=== PATIENT | male | born 1980 | race African-American/Black ===

== ENCOUNTER 2022-05-11 11:52 | Observation (INO) ==
[2022-05-11 12:34] LABS: Hematocrit (blood only) 41.7 % (40.1-51.0); Hemoglobin 14.3 g/dl (14.0-18.0); Mean Corpuscular Hemoglobin 29.7 pg (25.0-34.0); Mean Corpuscular Hgb Conc 34.3 g/dL (32.0-36.0); Mean Corpuscular Volume 86.5 fL (80.0-100.0); Mean Platelet Volume 9.1 fL (9.4-12.4); Platelet Count 289 K/uL (130-400); RDW Coefficient of Variation 13.2 % (11.5-14.5); RDW Standard Deviation 41.1 fL (36.4-46.3); Red Blood Count 4.82 M/uL (4.63-6.08); White Blood Count 19.08 K/ul (4.8-10.8)
[2022-05-11 12:54] LABS: Basophils # (auto) 0.03 K/uL (0-0.2); Basophils % (auto) 0.2 %; Immature Granulocytes # (auto) 0.09 K/uL (0.00-0.02); Immature Granulocytes % (auto) 0.5 %; Lymphocytes # (auto) 0.76 K/uL (1.2-3.4); Monocytes # (auto) 0.83 K/uL (0.24-0.82); Monocytes % (auto) 4.4 %; Neutrophils # (auto) 17.37 K/uL (1.4-6.5); Neutrophils % (auto) 90.9 %
[2022-05-11 12:59] LABS: Albumin Globulin Ratio 1.3 (0.9-2); BUN Creatinine Ratio 16.7 (10-20); Bilirubin,Total 0.5 mg/dl (0.2-1.0); Calcium 9.2 mg/dl (8.5-10.1); Creatinine Clr Calc Pharmacy 122.9 ml/min; Est GFR (African American) 114.1 ml/min; Est GFR (Non-African American) 98.5 ml/min; Globulin 3.1 gm/dl (2.5-4.0); Potassium 3.9 mmol/L (3.5-5.1); Total Protein 7.1 gm/dl (6.0-8.3)
[2022-05-11] MEDS ORDERED: ONDANSETRON INJ 2 MG/ML 2 ML VIAL IV STA (13:40)
[2022-05-11] MEDS ORDERED: MoRPHine SULFATE 10 MG/ML CARP/VIAL IV STA (13:40)
[2022-05-11] MEDS ORDERED: MoRPHine SULFATE 4 MG/ML 1 ML CARP\\VIAL IV PRN ×2 (13:40→19:35)
[2022-05-11] MEDS ORDERED: SODIUM CHLORIDE 0.9% 1000ML 1,000 ML IV SCH (13:43)
--- NOTE | 2022-05-11 13:51 | Emergency Department Note ---
History of Present Illness General Chief complaint: Abdominal Pain Stated complaint: ABDOMINAL PAIN WITH EMESIS Time Seen by Provider: 05/11/22 13:29 History of Present Illness Maximum Pain Intensity: 6 Patient is a 41-year-old male, inmate at [facility], with past medical history significant for hypertension, diabetes with neuropathy, depression/personality disorder, who is brought to the emergency department by corrections officers for evaluation of abdominal pain, nausea, vomiting and diarrhea. He reports a diffuse, generalized abdominal pain for the last 5 days with associated nausea and anorexia. He developed diarrhea yesterday, and has been vomiting all night. The pain is now more localized in the right side. He rates it a 6/10. He had some milk, orange juice and a few bites of cereal for breakfast this morning. He reports burning with urination. He was seen by medical staff at the [facility] and sent to the ED for evaluation. Home Medications Medication Instructions Recorded Confirmed Type aspirin 81 mg chewable tablet 81 mg PO DAILY 12/27/21 12/27/21 History atenolol 25 mg tablet 50 mg PO DAILY 12/27/21 12/27/21 History enalapril maleate 20 mg tablet 20 mg PO BID 12/27/21 12/27/21 History ergocalciferol (vitamin D2) 1,250 1,250 mcg PO WK 12/27/21 12/27/21 History mcg (50,000 unit) capsule (Vitamin D2) lamotrigine 150 mg tablet 150 mg PO BID 12/27/21 12/27/21 History metformin 500 mg tablet 500 mg PO DAILY 12/27/21 12/27/21 History nortriptyline 25 mg capsule 25 mg PO HS 12/27/21 12/27/21 History sertraline 100 mg tablet 200 mg PO DAILY 12/27/21 12/27/21 History Allergies Allergy/AdvReac Type Severity Reaction Status Date / Time No Known Allergies Allergy Verified 12/27/21 22:26 Past Med/Surg History Medical History (Updated 05/11/22 @ 19:49 by Dar Philippe) Appendicitis, acute Depression Diabetes High blood pressure Surgical History H/O hernia repair Social History (Updated 05/11/22 @ 13:49 by Dar Philippe) Smoking Status: Current every day smoker Preferred Language: Italian Current Living Situation: Other Current Living Situation Comment: [facility] current occupational status: other 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 Feels Safe at Home: Yes Review of Systems A total of 10 systems reviewed and were otherwise negative Physical Exam Vital Signs Vital Signs - 24 hr 05/11/22 11:57 05/11/22 12:51 05/11/22 12:52 Temperature 36.6 C Temperature Source Temporal Artery Scan Pulse Rate 86 Pulse Rate [Finger] 87 Pulse Rate from SpO2 Sensor Pulse Rhythm [Finger] Regular Pulse Strength [Finger] Normal Respiratory Rate 18 20 Respiratory Effort / Characteristics Non-Labored Non-Labored Respiratory Depth Normal Normal Blood Pressure 161/116 H 199/125 H Blood Pressure [Left Arm] 199/125 H Blood Pressure Mean 131 149 Blood Pressure Mean [Left Arm] 149 Blood Pressure Position [Left Arm] Lying Pulse Oximetry 98 94 Oxygen Delivery Method Room Air Room Air Sepsis Recent Fever Within 48 Hours No Sepsis New/Unexplained Change in Mental Status No Sepsis Action Taken by Nursing No Action Required 05/11/22 12:52 05/11/22 13:00 05/11/22 13:00 Temperature Temperature Source Pulse Rate 87 80 Pulse Rate [Finger] Pulse Rate from SpO2 Sensor 87 Pulse Rhythm [Finger] Pulse Strength [Finger] Respiratory Rate 27 H 27 H Respiratory Effort / Characteristics Respiratory Depth Blood Pressure 181/117 H Blood Pressure [Left Arm] Blood Pressure Mean 138 Blood Pressure Mean [Left Arm] Blood Pressure Position [Left Arm] Pulse Oximetry 94 Oxygen Delivery Method Sepsis Recent Fever Within 48 Hours Sepsis New/Unexplained Change in Mental Status Sepsis Action Taken by Nursing 05/11/22 13:30 05/11/22 13:30 05/11/22 14:00 Temperature Temperature Source Pulse Rate 86 92 H Pulse Rate [Finger] Pulse Rate from SpO2 Sensor Pulse Rhythm [Finger] Pulse Strength [Finger] Respiratory Rate 31 H 22 Respiratory Effort / Characteristics Respiratory Depth Blood Pressure 205/136 H Blood Pressure [Left Arm] Blood Pressure Mean 159 Blood Pressure Mean [Left Arm] Blood Pressure Position [Left Arm] Pulse Oximetry Oxygen Delivery Method Sepsis Recent Fever Within 48 Hours Sepsis New/Unexplained Change in Mental Status Sepsis Action Taken by Nursing 05/11/22 14:01 05/11/22 14:01 05/11/22 14:30 Temperature Temperature Source Pulse Rate 92 H Pulse Rate [Finger] Pulse Rate from SpO2 Sensor Pulse Rhythm [Finger] Pulse Strength [Finger] Respiratory Rate 25 H Respiratory Effort / Characteristics Respiratory Depth Blood Pressure 195/132 H 170/114 H Blood Pressure [Left Arm] Blood Pressure Mean 153 132 Blood Pressure Mean [Left Arm] Blood Pressure Position [Left Arm] Pulse Oximetry Oxygen Delivery Method Sepsis Recent Fever Within 48 Hours Sepsis New/Unexplained Change in Mental Status Sepsis Action Taken by Nursing 05/11/22 14:30 05/11/22 14:31 05/11/22 16:17 Temperature Temperature Source Pulse Rate 91 H 95 H Pulse Rate [Finger] Pulse Rate from SpO2 Sensor 92 H 95 H Pulse Rhythm [Finger] Pulse Strength [Finger] Respiratory Rate 24 33 H Respiratory Effort / Characteristics Respiratory Depth Blood Pressure 133/81 Blood Pressure [Left Arm] Blood Pressure Mean 98 Blood Pressure Mean [Left Arm] Blood Pressure Position [Left Arm] Pulse Oximetry 93 94 Oxygen Delivery Method Sepsis Recent Fever Within 48 Hours Sepsis New/Unexplained Change in Mental Status Sepsis Action Taken by Nursing 05/11/22 16:19 05/11/22 16:19 05/11/22 16:30 Temperature Temperature Source Pulse Rate 87 Pulse Rate [Finger] Pulse Rate from SpO2 Sensor 86 Pulse Rhythm [Finger] Pulse Strength [Finger] Respiratory Rate 22 Respiratory Effort / Characteristics Respiratory Depth Blood Pressure 153/94 H 147/92 H Blood Pressure [Left Arm] Blood Pressure Mean 113 110 Blood Pressure Mean [Left Arm] Blood Pressure Position [Left Arm] Pulse Oximetry 96 Oxygen Delivery Method Sepsis Recent Fever Within 48 Hours Sepsis New/Unexplained Change in Mental Status Sepsis Action Taken by Nursing 05/11/22 16:30 Temperature Temperature Source Pulse Rate 81 Pulse Rate [Finger] Pulse Rate from SpO2 Sensor Pulse Rhythm [Finger] Pulse Strength [Finger] Respiratory Rate 28 H Respiratory Effort / Characteristics Respiratory Depth Blood Pressure Blood Pressure [Left Arm] Blood Pressure Mean Blood Pressure Mean [Left Arm] Blood Pressure Position [Left Arm] Pulse Oximetry Oxygen Delivery Method Sepsis Recent Fever Within 48 Hours Sepsis New/Unexplained Change in Mental Status Sepsis Action Taken by Nursing CONSTITUTIONAL: Patient is a well-appearing 41-year-old male who is awake and alert and laying on the gurney. Corrections officers are in the room. EYES: Pupils equal, round, reactive to light and accommodation. EOMs intact without nystagmus. Sclera are anicteric. ENT: Tympanic membranes intact, with normal landmarks. External canals are clear. Oral and nasopharynx are clear. Mucous membranes are moist, no lesions, tongue and gums appear normal. CARDIOVASCULAR: Regular rate and rhythm. Peripheral pulses easy to palpable. RESPIRATORY: Breath sounds equal and clear to auscultation. GI: Bowel sounds are present. Abdomen is soft, mildly distended, diffusely tender to percussion, primarily throughout the lower abdomen. He is tender to palpation in the right lower quadrant with voluntary guarding. No rigidity. MUSCULOSKELETAL: Full range of motion of extremities x 4 with good strength. No cyanosis, edema, joint tenderness or swelling. No deformity. INTEGUMENTARY: No lesions or rash, normal skin turgor. NEUROLOGICAL: Alert, oriented, and cooperative. Cranial nerves, sensation and strength grossly intact. Pupils round, equal, and react to light, EOMs are full. LYMPH: No lymphadenopathy. Course Course The patient was seen and assessed as above. Old records were reviewed. Critical pathways implemented prior to my assessment of the patient included CBC, CMP, lipase and urinalysis. A chest x-ray and a CT scan of the abdomen pelvis with IV contrast was also ordered. I ordered the patient some IV fluids, Zofran and morphine for pain and a COVID swab. Laboratory studies noted an elevated white count at 19,000 with left shift noted. Electrolytes and renal functions are normal. Transaminases and lipase are not elevated. Chest x-ray was clear. CT scan of the abdomen and pelvis with IV contrast notes a dilated, fluid-filled appendix measuring 14 mm in diameter with wall thickening and hyperemia and periappendiceal inflammation concerning for acute appendicitis. No fluid collection to indicate abscess. No perforation. CT scan findings were discussed with the patient. He is aware that he will need surgical intervention. The patient was discussed with Dr. Thakur and he came in to evaluate the patient. He will take the patient to the OR for surgical intervention. Administered Medications Enalapril Maleate (Enalapril Maleate 10 Mg Tab) 20 mg PO BID [facility] Stop: 06/10/22 20:59 Last Admin: 05/11/22 22:16 Dose: 20 mg Documented By: OLIMPIA Sodium Chloride (Nss) 1,000 mls @ 100 mls/hr IV .Q10H SKYE Stop: 06/10/22 20:14 Last Admin: 05/11/22 20:15 Dose: 100 mls/hr Documented By: OLIMPIA Insulin Aspart (Insulin Aspart Per Unit) 0 units SC ACHS SKYE Stop: 06/10/22 20:59 Last Admin: 05/11/22 21:03 Dose: Not Given Documented By: OLIMPIA Co-signed By: BLANCA Nortriptyline HCl (Nortriptyline Hcl 25 Mg Cap) 25 mg PO HS [facility] Stop: 06/10/22 20:59 Last Admin: 05/11/22 21:55 Dose: 25 mg Documented By: OLIMPIA Discontinued Medications Bupivacaine HCl/Epinephrine Bitart (Bupivacaine/Epinephrine 0.5% Mpf 1:200,000 10 Ml Vial) Confirm Administered Dose 20 ml .ROUTE .STK-MED ONE Stop: 05/11/22 17:08 Last Admin: 05/11/22 18:07 Dose: 20 ml Documented By: AZEEM Sodium Chloride (Nss 1000ml) 1,000 mls @ 999 mls/hr IV .Q1H1M [facility] Stop: 05/11/22 14:43 Last Infusion: 05/11/22 19:49 Dose: 0 mls/hr Documented By: Admin: 05/11/22 14:22 Dose: 999 mls/hr Documented By: FERMIN Sodium Chloride (Nss 1000ml) 1,000 mls @ 250 mls/hr IV .Q4H [facility] Stop: 06/10/22 13:44 Last Admin: 05/11/22 20:05 Dose: Not Given Documented By: Infusion: 05/11/22 20:05 Dose: 0 mls/hr Documented By: Admin: 05/11/22 16:24 Dose: 250 mls/hr Documented By: FERMIN Cefazolin Sodium (Ancef 2000mg) 2,000 mg in 15 mls @ 3.75 mls/min IV PREOP ONE; Protocol Stop: 05/11/22 18:11 Last Admin: 05/11/22 19:49 Dose: Not Given Documented By: OLIMPIA Ioversol (Optiray 350 100ml) 88 ml IV ONCE ONE Stop: 05/11/22 14:39 Last Admin: 05/11/22 14:40 Dose: 88 ml Documented By: BREE Morphine Sulfate (Morphine Sulfate 10 Mg/Ml Carp/Vial) 6 mg IV NOW STA Stop: 05/11/22 13:41 Last Admin: 05/11/22 14:21 Dose: 6 mg Documented By: FERMIN Ondansetron HCl (Ondansetron Inj 2 Mg/Ml 2 Ml Vial) 4 mg IV NOW STA Stop: 05/11/22 13:41 Last Admin: 05/11/22 14:21 Dose: 4 mg Documented By: FERMIN Medical Decision Making Differential Diagnosis Differential diagnoses entertained included acute appendicitis, UTI, pyelonephritis, kidney stone, infectious versus inflammatory colitis/enteritis, foodborne illness, mass or malignancy, among others. Medical Records Attestation: I reviewed the patient's medical records. Home Medications Current Medication List: was personally reviewed by me Laboratory Data Attestation: I reviewed the patient's lab results. Result diagrams: 05/11/22 12:25 05/11/22 12:25 Lab Results 05/11/22 05/11/22 05/11/22 Range/Units 12:25 12: 15:55 WBC 19.08 H (4.8-10.8) K/ul RBC 4.82 (4.63-6.08) M/uL Hgb 14.3 (14.0-18.0) g/dl Hct 41.7 (40.1-51.0) % MCV 86.5 (80.0-100.0) fL MCH 29.7 (25.0-34.0) pg MCHC 34.3 (32.0-36.0) g/dL RDW Std Deviation 41.1 (36.4-46.3) fL RDW Coeff of Deandre 13.2 (11.5-14.5) % Plt Count 289 (130-400) K/uL MPV 9.1 L (9.4-12.4) fL Immature Gran % (Auto) 0.5 % Neut % (Auto) 90.9 % Lymph % (Auto) 4.0 % [place] % (Auto) 4.4 % Eos % (Auto) 0.0 % Baso % (Auto) 0.2 % Neut # (Auto) 17.37 H (1.4-6.5) K/uL Lymph # (Auto) 0.76 L (1.2-3.4) K/uL [place] # (Auto) 0.83 H (0.24-0.82) K/uL Eos # (Auto) 0.00 (0-0.50) K/uL Baso # (Auto) 0.03 (0-0.2) K/uL Immature Gran # (Auto) 0.09 H (0.00-0.02) K/uL Sodium 134 L (136-145) mmol/L Potassium 3.9 (3.5-5.1) mmol/L Chloride 98 (98-107) mmol/L Carbon Dioxide 29 (21-32) mmol/L Anion Gap 7 (3-11) BUN 16 (6-23) mg/dl Creatinine 0.96 (0.6-1.4) mg/dl Est Cr Clr Drug Dosing 122.9 ml/min Est GFR ( Amer) 114.1 ml/min Est GFR (Non-Af Amer) 98.5 ml/min BUN/Creatinine Ratio 16.7 (10-20) Glucose 148 H (70-99(Fasting)) mg/dl Calcium 9.2 (8.5-10.1) mg/dl Total Bilirubin 0.5 (0.2-1.0) mg/dl AST 23 (13-39) U/L ALT 20 (7-52) U/L Alkaline Phosphatase 94 (34-104) U/L Total Protein 7.1 (6.0-8.3) gm/dl Albumin 4.0 (3.4-5.0) gm/dl Globulin 3.1 (2.5-4.0) gm/dl Albumin/Globulin Ratio 1.3 (0.9-2) Lipase 10 L (11-82) U/L Urine Color Yellow Urine Appearance Clear (Clear) Urine pH 7.5 (4.5-7.5) Ur Specific [place] > 1.045 H (1.000-1.030) Urine Protein Trace H (Negative) Urine Glucose (UA) Negative (Negative) Urine Ketones Negative (Negative) Urine Blood Negative (Negative) Urine Nitrite Negative (Negative) Urine Bilirubin Negative (Negative) Urine Urobilinogen Negative (Negative) Ur Leukocyte Esterase Negative (Negative) Urine WBC (Auto) 0 (0-5) /hpf Urine RBC (Auto) 0-4 (0-4) /hpf U Hyaline Cast (Auto) 0 (0-5) /lpf U Epithel Cells (Auto) 10-20 H (0-5) /lpf Urine Bacteria (Auto) Negative (Negative) Imaging Data Attestation: I personally reviewed and interpreted this imaging study as follows: Radiologist's Impression: Abdomen/Pelvis CT 05/11/22 13:22 CT SCAN OF THE ABDOMEN AND PELVIS WITH IV CONTRAST CLINICAL HISTORY: Generalized abdominal pain. COMPARISON STUDY: No priors. TECHNIQUE: Following the IV administration of 88 cc of Optiray 350, CT scan of the abdomen and pelvis is performed from the lung bases to the proximal femora. Images are reviewed in the axial, sagittal, and coronal planes. IV contrast was administered without complication. A dose lowering technique was utilized adhering to the principles of ALARA. CT DOSE: 754.07 mGy.cm FINDINGS: Lung bases: The heart is normal in size and without pericardial effusion. The lung bases are clear noting dependent atelectasis. A small hiatal hernia is noted. Liver: The contrast-enhanced liver is top normal in size and demonstrates diffusely diminutive attenuation indicating steatosis. Fatty sparing is seen adjacent to the gallbladder fossa. There is no intrahepatic biliary ductal dilatation. The hepatic veins and portal veins are patent. Gallbladder: Unremarkable. Spleen: Normal in size and attenuation. Pancreas: Unremarkable. Adrenal glands: Unremarkable. Kidneys: The contrast enhanced kidneys are normal in size and without hydronephrosis. The kidneys enhance symmetrically. Abdominal vasculature: The abdominal aorta is normal in course and caliber. Bowel: There is moderate colonic fecal retention. No bowel obstruction is seen. The appendix is dilated and fluid-filled, measuring up to 14 mm in diameter as seen on image #299. The appendiceal wall is thickened and hyperemic and there is periappendiceal inflammation. Findings are consistent with acute appendicitis. No fluid collection is seen to indicate abscess. Peritoneum: There is no intraperitoneal free air or abdominal ascites. There are large fat-containing umbilical and supraumbilical hernias. Lymphadenopathy: None. Pelvic viscera: The bladder, prostate, and seminal vesicles are normal as visualized. Skeletal structures: No lytic or blastic lesions are seen. IMPRESSION: 1. Acute appendicitis. 2. There is no evidence of abscess or perforation. 3. Hepatic steatosis. ACT 112: Negative or not required by law. Electronically signed by: Michael Shrestha M.D. 05/11/2022 3:07 PM Chest X-Ray 05/11/22 13:22 SINGLE VIEW CHEST CLINICAL HISTORY: Generalized abdominal pain FINDINGS: An AP, portable, upright chest radiograph is compared to study dated 12/27/2021. The cardiomediastinal silhouette is unremarkable. The lungs and pleural spaces are clear noting mild bibasilar atelectasis. No pneumothorax is seen. The bony thorax is grossly intact. IMPRESSION: No active disease in the chest. ACT 112: Negative or not required by law. Electronically signed by: Michael Shrestha M.D. 05/11/2022 2:05 PM MDM Narrative See ED Course. Impression & Plan Acute appendicitis Discharge Plan Visit Data Chief Complaint: Abdominal Pain Stated Complaint: ABDOMINAL PAIN WITH EMESIS ED Provider: Oscar Ware ED Midlevel Provider: Dar Philippe Discharge Problem: Acute appendicitis Patient Disposition: Being Evaluated by Surgeon Discharge Instructions Interventions: ED Discharge Assessment Last Done: 05/11/22 17:24
--- NOTE | 2022-05-11 14:07 | XRay Report ---
SINGLE VIEW CHEST CLINICAL HISTORY: Generalized abdominal pain FINDINGS: An AP, portable, upright chest radiograph is compared to study dated 12/27/2021. The cardiom ediastinal silhouette is unremarkable. The lungs and pleural spaces are clear noting mild bibasilar a telectasis. No pneumothorax is seen. The bony thorax is grossly intact. IMPRESSION: No active disease in the chest. ACT 112: Negative or not required by law. Electronically signed by: Michael Shrestha M.D. 05/11/2022 2:05 PM
[2022-05-11] MEDS ORDERED: OPTIRAY 350 100ml IV ONE (14:38)
--- NOTE | 2022-05-11 15:10 | CT Scan Report ---
CT SCAN OF THE ABDOMEN AND PELVIS WITH IV CONTRAST CLINICAL HISTORY: Generalized abdominal pain. COMPARISON STUDY: No priors. TECHNIQUE: Following the IV administration of 88 cc of Optiray 350, CT scan of the abdomen and pelvi s is performed from the lung bases to the proximal femora. Images are reviewed in the axial, sagittal , and coronal planes. IV contrast was administered without complication. A dose lowering technique wa s utilized adhering to the principles of ALARA. CT DOSE: 754.07 mGy.cm FINDINGS: Lung bases: The heart is normal in size and without pericardial effusion. The lung bases are clear no ting dependent atelectasis. A small hiatal hernia is noted. Liver: The contrast-enhanced liver is top normal in size and demonstrates diffusely diminutive attenu ation indicating steatosis. Fatty sparing is seen adjacent to the gallbladder fossa. There is no intr ahepatic biliary ductal dilatation. The hepatic veins and portal veins are patent. Gallbladder: Unremarkable. Spleen: Normal in size and attenuation. Pancreas: Unremarkable. Adrenal glands: Unremarkable. Kidneys: The contrast enhanced kidneys are normal in size and without hydronephrosis. The kidneys enh ance symmetrically. Abdominal vasculature: The abdominal aorta is normal in course and caliber. Bowel: There is moderate colonic fecal retention. No bowel obstruction is seen. The appendix is dila renato and fluid-filled, measuring up to 14 mm in diameter as seen on image #299. The appendiceal wall i s thickened and hyperemic and there is periappendiceal inflammation. Findings are consistent with acu te appendicitis. No fluid collection is seen to indicate abscess. Peritoneum: There is no intraperitoneal free air or abdominal ascites. There are large fat-containing umbilical and supraumbilical hernias. Lymphadenopathy: None. Pelvic viscera: The bladder, prostate, and seminal vesicles are normal as visualized. Skeletal structures: No lytic or blastic lesions are seen. IMPRESSION: 1. Acute appendicitis. 2. There is no evidence of abscess or perforation. 3. Hepatic steatosis. ACT 112: Negative or not required by law. Electronically signed by: Michael Shrestha M.D. 05/11/2022 3:07 PM
[2022-05-11 16:07] LABS: Appearance Urine Clear (Clear); Bacteria Urine Automated Negative (Negative); Bilirubin Urine Negative (Negative); Blood Urine Negative (Negative); Cast Urine Automated 0 /lpf (0-5); Color Urine Yellow; Glucose Urine UA Negative (Negative); Ketones Urine Negative (Negative); Leukocyte Esterase Urine Negative (Negative); Nitrite Urine Negative (Negative); RBC Urine Automated 0-4 /hpf (0-4); Specific Gravity Urine > 1.045 (1.000-1.030); Urobilinogen Urine Negative (Negative); WBC Urine Automated 0 /hpf (0-5); pH Urine 7.5 (4.5-7.5)
[2022-05-11 16:09] LABS: Protein Urine Trace (Negative)
[2022-05-11] MEDS: SODIUM CHLORIDE 0.9% 1000ML 1,000 ML IV SCH ×2 (16:24→20:05)
--- NOTE | 2022-05-11 16:43 | Anesthesiology Consultation ---
Date of Service May 11, 2022 Assessment & Plan Chart Review Chart Review: Acceptable Risk for Surgery and Patient NOT seen in Pre Admission Testing Consults Requested none ASA [id number] Proposed Anesthesia Anesthesia Type: General History Height/Weight Height: 5 ft 9 in Weight: 106.4 kg Allergies Allergy/AdvReac Type Severity Reaction Status Date / Time No Known Allergies Allergy Verified 12/27/21 22:26 Medications Home Medications Medication Instructions Recorded Confirmed Last Taken aspirin 81 mg chewable tablet 81 mg PO DAILY 12/27/21 12/27/21 12/25/21 atenolol 25 mg tablet 50 mg PO DAILY 12/27/21 12/27/21 12/25/21 enalapril maleate 20 mg tablet 20 mg PO BID 12/27/21 12/27/21 12/27/21 ergocalciferol (vitamin D2) 1,250 1,250 mcg PO WK 12/27/21 12/27/21 12/23/21 mcg (50,000 unit) capsule (Vitamin D2) lamotrigine 150 mg tablet 150 mg PO BID 12/27/21 12/27/21 12/27/21 metformin 500 mg tablet 500 mg PO DAILY 12/27/21 12/27/21 12/25/21 nortriptyline 25 mg capsule 25 mg PO HS 12/27/21 12/27/21 12/27/21 sertraline 100 mg tablet 200 mg PO DAILY 12/27/21 12/27/21 12/25/21 Active Medications Generic Name Dose Route Start Last Admin Trade Name Freq PRN Reason Stop Dose Admin Sodium Chloride 1,000 mls @ 250 mls/hr 05/11/22 13:45 05/11/22 16:24 Nss 1000ml IV 06/10/22 13:44 250 mls/hr .Q4H SKYE Administration Past Medical History Medical History Depression Diabetes High blood pressure Exercise / Class Metabolic Activity II 4-5 Yardwork/Stairs/Walk up hill Past Surgical History Surgical History H/O hernia repair Past Anesthesia History No Hx of Anesthesia Complications and No Family Hx of Anesthesia Complications History of PONV No Hx of PONV and No Hx of Motion Sickness Social History Smoking Status: Current every day smoker Physical Exam Vital Signs Last Vital Signs Temp 36.6 C 05/11/22 11:57 Pulse 81 05/11/22 16:30 Resp 28 H 05/11/22 16:30 BP 147/92 H 05/11/22 16:30 Pulse Ox 96 05/11/22 16:19 O2 Del Method 05/11/22 12:51 Testing Laboratory Results 05/11/22 12:25 05/11/22 12:25 Urine Color Yellow 05/11/22 15:55 Urine Appearance Clear (Clear) 05/11/22 15:55 Urine pH 7.5 (4.5-7.5) 05/11/22 15:55 Ur Specific [place] > 1.045 (1.000-1.030) H 05/11/22 15:55 Urine Protein Trace (Negative) H 05/11/22 15:55 Urine Glucose (UA) Negative (Negative) 05/11/22 15:55 Urine Ketones Negative (Negative) 05/11/22 15:55 Urine Nitrite Negative (Negative) 05/11/22 15:55 Ur Leukocyte Esterase Negative (Negative) 05/11/22 15:55 Urine WBC (Auto) 0 /hpf (0-5) 05/11/22 15:55 Urine RBC (Auto) 0-4 /hpf (0-4) 05/11/22 15:55 U Hyaline Cast (Auto) 0 /lpf (0-5) 05/11/22 15:55 U Epithel Cells (Auto) 10-20 /lpf (0-5) H 05/11/22 15:55 Urine Bacteria (Auto) Negative (Negative) 05/11/22 15:55 Electrocardiogram Date: 12/27/21 Findings: + NSR @ (@ 84 w/ SA) Chest X-Ray Date: 05/11/22 Findings: + NAD
[2022-05-11] MEDS ORDERED: fentaNYL citrate 100 MCG/2 ML VIAL IV PRN (17:05)
[2022-05-11] MEDS ORDERED: LABETALOL HCL IV 5 MG/ML 20ML IV PRN (17:05)
[2022-05-11] MEDS ORDERED: ePHEDrine sulfate 50 MG/ML AMP IV PRN (17:05)
[2022-05-11] MEDS ORDERED: NALOXONE HCL 0.4 MG/1 ML VIAL/CARP IV PRN (17:05)
[2022-05-11] MEDS ORDERED: FLUMAZENIL 0.1 MG/1 ML 10 ML VIAL IV PRN (17:05)
[2022-05-11] MEDS ORDERED: PROMETHAZINE HCL 12.5 MG in SODIUM CHLORIDE 0.9% 50 ML IV PRN (17:05)
[2022-05-11] MEDS ORDERED: HYDROmorphone INJ 1 MG/ML SYRINGE IV PRN (17:05)
[2022-05-11] MEDS ORDERED: ONDANSETRON INJ 2 MG/ML 2 ML VIAL IV PRN ×2 (17:05→19:35)
[2022-05-11] MEDS ORDERED: ATROPINE SULFATE 0.1 MG/ML 10ML SYR IV PRN (17:05)
[2022-05-11] MEDS ORDERED: BUPIVACAINE/EPINEPHRINE 0.5% MPF 1:200,000 10 ML VIAL ONE (17:07)
--- NOTE | 2022-05-11 17:18 | History & Physical Report ---
Date of Service May 11, 2022 Assessment & Plan (1) Appendicitis, acute: Plan: IVF IV abx to OR for lap appendectomy Present on Admission?: Yes History of Present Illness Primary Care Provider: DEENA Henning This is [id number] male, inmate with past medical history significant for hypertension, diabetes with neuropathy, depression/personality disorder, who is brought to the emergency department by corrections officers for evaluation of abdominal pain, nausea, vomiting and diarrhea. He reports a diffuse, generalize d abdominal pain for the last 5 days with associated nausea and anorexia. He developed diarrhea yesterday, and has been vomiting all night. The pain is now more localized in the right side. He reports burning with urination. A CT scan shows acute appendicitis without peforation or abscess . Allergies Allergy/AdvReac Type Severity Reaction Status Date / Time No Known Allergies Allergy Verified 12/27/21 22:26 Home Medications Medication Instructions Recorded Confirmed Type aspirin 81 mg chewable tablet 81 mg PO DAILY 12/27/21 12/27/21 History atenolol 25 mg tablet 50 mg PO DAILY 12/27/21 12/27/21 History enalapril maleate 20 mg tablet 20 mg PO BID 12/27/21 12/27/21 History ergocalciferol (vitamin D2) 1,250 1,250 mcg PO WK 12/27/21 12/27/21 History mcg (50,000 unit) capsule (Vitamin D2) lamotrigine 150 mg tablet 150 mg PO BID 12/27/21 12/27/21 History metformin 500 mg tablet 500 mg PO DAILY 12/27/21 12/27/21 History nortriptyline 25 mg capsule 25 mg PO HS 12/27/21 12/27/21 History sertraline 100 mg tablet 200 mg PO DAILY 12/27/21 12/27/21 History Past Med/Surg History Medical History (Updated 05/11/22 @ 17:19 by Carlos Thakur MD) Appendicitis, acute Depression Diabetes High blood pressure Surgical History H/O hernia repair Social History (Updated 05/11/22 @ 13:49 by Dar Philippe) Smoking Status: Current every day smoker Preferred Language: Bengali Current Living Situation: Other Current Living Situation Comment: DEENA Henning current occupational status: other 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 Feels Safe at Home: Yes Review of Systems + fever and + anorexia; no chills and no fatigue no problem reported no problem reported no cough and no dyspnea no chest pain + abdominal pain, + nausea, + vomiting and + change in bowel habits + dysuria + back pain; no neck pain and no joint pain no rash and no lesions no localized weakness and no generalized weakness no behavioral changes no easy bleeding and no easy bruising Physical Exam Constitutional: WD/WN, vitals as above Eyes: PERRL, conjunctivae normal, anicteric sclerae ENMT: external ear and nose normal, oropharynx normal Neck: trachea midline Respiratory: normal respiratory effort, lungs clear to auscultation Cardiovascular: RRR, no murmur, no edema Gastrointestinal (Abdomen): Inspection/Auscultation: abdomen normal to inspection and normal bowel sounds; abdomen not distended Percussion/Palpation: + abdomen tender and abdomen soft; no guarding and abdomen not rigid Musculoskeletal: Head/Neck/Chest: normocephalic and head atraumatic Skin: no rashes, warm and dry Psychiatric: Orientation: alert and oriented x 3 Results & Data ([facility]) Vital Signs (Past 12 Hours) Vital Signs Temp Pulse Pulse Resp BP BP Pulse Ox 05/11/22 16:30 81 28 H 05/11/22 16:30 147/92 H 05/11/22 16:19 87 22 96 05/11/22 16:19 153/94 H 05/11/22 16:17 133/81 05/11/22 14:31 95 H 33 H 94 05/11/22 14:30 91 H 24 93 05/11/22 14:30 170/114 H 05/11/22 14:01 92 H 25 H 05/11/22 14:01 195/132 H 05/11/22 14:00 92 H 22 05/11/22 13:30 86 31 H 05/11/22 13:30 205/136 H 05/11/22 13:00 80 27 H 05/11/22 13:00 181/117 H 05/11/22 12:52 87 27 H 94 05/11/22 12:52 199/125 H 05/11/22 12:51 87 20 199/125 H 94 05/11/22 11:57 36.6 C 86 18 161/116 H 98 O2 Del Method 12/03/22 16:30 05/11/22 16:30 05/11/22 16:19 05/11/22 16:19 05/11/22 16:17 05/11/22 14:31 05/11/22 14:30 05/11/22 14:30 05/11/22 14:01 05/11/22 14:01 05/11/22 14:00 05/11/22 13:30 05/11/22 13:30 05/11/22 13:00 05/11/22 13:00 05/11/22 12:52 05/11/22 12:52 05/11/22 12:51 Room Air 05/11/22 11:57 Room Air Diagnostic Findings CT SCAN OF THE ABDOMEN AND PELVIS WITH IV CONTRAST CLINICAL HISTORY: Generalized abdominal pain. COMPARISON STUDY: No priors. TECHNIQUE: Following the IV administration of 88 cc of Optiray 350, CT scan of the abdomen and pelvis is performed from the lung bases to the proximal femora. Images are reviewed in the axial, sagittal, and coronal planes. IV contrast was administered without complication. A dose lowering technique was utilized adhering to the principles of ALARA. CT DOSE: 754.07 mGy.cm FINDINGS: Lung bases: The heart is normal in size and without pericardial effusion. The lung bases are clear noting dependent atelectasis. A small hiatal hernia is noted. Liver: The contrast-enhanced liver is top normal in size and demonstrates diffusely diminutive attenuation indicating steatosis. Fatty sparing is seen adjacent to the gallbladder fossa. There is no intrahepatic biliary ductal dilatation. The hepatic veins and portal veins are patent. Gallbladder: Unremarkable. Spleen: Normal in size and attenuation. Pancreas: Unremarkable. Adrenal glands: Unremarkable. Kidneys: The contrast enhanced kidneys are normal in size and without hydronep hrosis. The kidneys enhance symmetrically. Abdominal vasculature: The abdominal aorta is normal in course and caliber. Bowel: There is moderate colonic fecal retention. No bowel obstruction is seen. The appendix is dilated and fluid-filled, measuring up to 14 mm in diameter as seen on image #[id number]. The appendiceal wall is thickened and hyperemic and there is periappendiceal inflammation. Findings are consistent with acute appendicitis. No fluid collection is seen to indicate abscess. Peritoneum: There is no intraperitoneal free air or abdominal ascites. There are large fat-containing umbilical and supraumbilical hernias. Lymphadenopathy: None. Pelvic viscera: The bladder, prostate, and seminal vesicles are normal as visualized. Skeletal structures: No lytic or blastic lesions are seen. IMPRESSION: 1. Acute appendicitis. 2. There is no evidence of abscess or perforation. 3. Hepatic steatosis.
[2022-05-11] MEDS ORDERED: PROPOFOL IV EMULSION 10 MG/ML 20 ML VIAL IV ONE (17:24)
[2022-05-11] MEDS ORDERED: fentaNYL citrate 100 MCG/2 ML VIAL ONE (17:25)
[2022-05-11] MEDS ORDERED: MIDAZOLAM HCL 1 MG/ML 2ML VIAL ONE (17:25)
[2022-05-11] MEDS ORDERED: ONDANSETRON INJ 2 MG/ML 2 ML VIAL ONE (18:00)
[2022-05-11] MEDS ORDERED: DEXAMETHASONE SOD INJ 4 MG/ML VIAL ONE (18:00)
[2022-05-11] MEDS ORDERED: SUCCINYLCHOLINE CHLORIDE 20 MG/ML 10 ML VIAL IV ONE (18:00)
[2022-05-11] MEDS ORDERED: CISATRACURIUM BESYLATE IV SOLN 2 MG/ML 10 ML VIAL IV ONE (18:00)
[2022-05-11] MEDS ORDERED: GLYCOPYRROLATE 0.2 MG/ML VIAL ONE (18:06)
[2022-05-11] MEDS ORDERED: NEOSTIGMINE METHYLSULFATE 1 MG/ML 10ML VIAL ONE (18:06)
[2022-05-11] MEDS ORDERED: ceFAZolin 2000MG 2,000 MG/15 ML SYR IV ONE (18:08)
--- NOTE | 2022-05-11 18:24 | Post Operative Brief Note ---
Immediate Post Op Note v1 Date of Surgery May 11, 2022 Pre & Post Diagnosis Operation Date: 05/11/22 17:00 Pre-Op Diagnosis: ABDOMINAL PAIN WITH EMESIS Post-Op Diagnosis: ABDOMINAL PAIN WITH EMESIS I identified the patient and participated in the time-out.: Yes Procedure Operation Date: 05/11/22 17:00 Actual Procedures p Laparoscopic Appendectomy(Not Applicable) - Carlos Thakur MD Surgeon Carlos Thakur MD Housing Assistant none Estimated Blood Loss 15 Findings Consistent with Post-Op Diagnosis acute appendicitis
--- NOTE | 2022-05-11 18:54 | Anesthesiology Progress Note ---
Date of Service May 11, 2022 Anesthesia Post Procedure Vital Signs Vital Signs: Temp Pulse Pulse Pulse Resp BP BP 05/11/22 18:50 89 24 05/11/22 18:40 93 H 27 H 05/11/22 18:33 36.4 C L 102 H 26 H 05/11/22 16:30 81 28 H 05/11/22 16:30 147/92 H 05/11/22 16:19 87 22 05/11/22 16:19 153/94 H 05/11/22 16:17 133/81 05/11/22 14:31 95 H 33 H 05/11/22 14:30 91 H 24 05/11/22 14:30 170/114 H 05/11/22 14:01 92 H 25 H 05/11/22 14:01 195/132 H 05/11/22 14:00 92 H 22 05/11/22 13:30 86 31 H 05/11/22 13:30 205/136 H 05/11/22 13:00 80 27 H 05/11/22 13:00 181/117 H 05/11/22 12:52 87 27 H 05/11/22 12:52 199/125 H 05/11/22 12:51 87 20 199/125 H 05/11/22 11:57 36.6 C 86 18 161/116 H BP Pulse Ox O2 Del Method O2 Flow Rate 05/11/22 18:50 163/93 H 98 Oxymask 4 05/11/22 18:40 158/92 H 97 Oxymask 6 05/11/22 18:33 162/99 H 96 Oxymask 6 05/11/22 16:30 05/11/22 16:30 05/11/22 16:19 96 05/11/22 16:19 05/11/22 16:17 05/11/22 14:31 94 05/11/22 14:30 93 05/11/22 14:30 05/11/22 14:01 05/11/22 14:01 05/11/22 14:00 05/11/22 13:30 05/11/22 13:30 05/11/22 13:00 05/11/22 13:00 05/11/22 12:52 94 05/11/22 12:52 05/11/22 12:51 94 Room Air 05/11/22 11:57 98 Room Air Pain Intensity Right Abdomen: Pain Intensity: 3 Transfer of Care Handoff Completed per policy Notes Mental Status: alert / awake / arousable Patient Amnestic to Procedure: Yes Nausea / Vomiting: adequately controlled Pain: adequately controlled Airway Patency, RR, SpO2: stable & adequate BP & HR: stable & adequate Hydration State: stable & adequate Anesthetic Complications: no major complications apparent
--- NOTE | 2022-05-11 19:34 | Operative Report (OR) ---
DATE OF SURGERY: 05/11/2022. PREOPERATIVE DIAGNOSIS: Acute appendicitis. POSTOPERATIVE DIAGNOSIS: Acute appendicitis. PROCEDURE PERFORMED: Laparoscopic appendectomy. SURGEON: Carlos Thakur MD. HOME CARE COMPANION: None. ANESTHESIA: General endotracheal with 0.5% Marcaine with epinephrine local. ESTIMATED BLOOD LOSS: 15 mL. DRAINS: None. COMPLICATIONS: None. SPECIMENS: Appendix sent for pathologic evaluation. INDICATIONS FOR PROCEDURE: This is a 41-year-old male admitted through the ED with acute abdominal p ain and underwent a full workup, which showed an acute appendicitis by CT scan. He was consented for a laparoscopic appendectomy including risks of open procedure, abscess, bleeding, wound problems, an d wound infection. DESCRIPTION OF PROCEDURE: The patient was taken to the OR and underwent excellent general endotrache al anesthesia. His abdomen was prepped and draped in normal sterile fashion. A transverse supraumbi lical incision was made above the umbilicus. Veress needle was inserted with tension on the abdomina l wall. Good pneumoperitoneum was then achieved to 15 mmHg pressure. An 11 visualized port was plac ed. A good diagnostic lap was performed. There was a small amount of purulent material in the right lower quadrant and the appendix was identified. A 5 suprapubic, a 5 right upper quadrant and a 12 l eft lower quadrant port were placed in normal fashion. The patient was placed in head down and jaxon d to the left. With a Haylee clamp, the cecum was grasped and retracted superiorly. The appendix wa s grasped. It was inflamed, but was grabbed by the tip. This displayed the mesoappendix, which was t hen taken down with a Harmonic scalpel. There was minimal bleeding. A RANULFO stapler was then used to transect the appendix in 2 fires. This was a issa 60 load. Appendix was inflamed. Once the appendix was completely transected, it was placed in the Endobag and brought out through the left lower quadr ant port. The port was replaced and pneumoperitoneum reestablished. A liter of saline was then used to irrigate out the abdominal cavity. There was minimal bleeding noticed. There was a clear efflue nt at the end of the case. Staple line appeared intact with no sign of bleeding. No other abnormali ties were noted. The ports were then removed. The pneumoperitoneum was decompressed. The fascial d efect in the 12 port was then closed with 0 Vicryl. Interrupted Vicryl was used to close the skin. 0.5% Marcaine with epinephrine local was used to create a local field block. Steri-Strips and benzoi n were used to reinforce the incision. Sterile dressings were applied. The patient tolerated the pr ocedure without any complications, was sent for postoperative recovery and period of observation, to be discharged up to his room once he meets criteria. Job ID: [id number]
[2022-05-11] MEDS ORDERED: IBUPROFEN 200 MG TAB PO PRN (19:35)
[2022-05-11] MEDS ORDERED: IBUPROFEN 600 MG TAB PO PRN (19:35)
[2022-05-11] MEDS ORDERED: MoRPHine SULFATE 2 MG/ML CARP IV PRN (19:35)
[2022-05-11] MEDS ORDERED: oxyCODONE/ACETAMINOPHEN 5mg/325mg TAB PO PRN (19:35)
[2022-05-11] MEDS ORDERED: PROMETHAZINE HCL 25 MG in SODIUM CHLORIDE 0.9% 50 ML IV PRN (19:35)
[2022-05-11] MEDS: SODIUM CHLORIDE 0.9% 1,000 ML IV SCH (20:15)
[2022-05-11] MEDS ORDERED: GLUCAGON FOR INJ 1 MG VIAL SQ PRN (20:47)
[2022-05-11] MEDS ORDERED: GLUCOSE 40% GEL 15 GM TUBE PO PRN (20:47)
[2022-05-11] MEDS ORDERED: DEXTROSE 50% 50 ML SYRINGE IV PRN (20:47)
[2022-05-11] MEDS ORDERED: CARBOHYDRATES FOR HYPOGLYCEMIA PO PRN (20:47)
[2022-05-11] MEDS ORDERED: GLUCOSE 10 TAB/TUBE PO PRN (20:47)
--- NOTE | 2022-05-11 20:49 | Hospitalist Consultation ---
Date of Consultation May 11, 2022 Assessment & Plan (1) Acute appendicitis: Final Assessment and Recommendations as follows : Acute appendicitis status post surgery Clinically well hypertension, stable DM2 on oral medications, inpatient BSGs controlled, unknown baseline control mood/personality disorder as per records, at baseline ongoing tobacco abuse Continue home BP meds (Atenolol and Enalapril) Hold metformin inpatient Basal bolus insulin, ISS BG goal 1 10-1 40, carb count coverage, check hemoglobin A1c Nicotine patch as needed DVT prophylaxis. SCDs as per postop orders Thank you very much for this consultation. Dr. Connor will follow patient's progress. Text document was generated using [employer] voice recognition software. It may contain grammatical or spelling errors. Kindly contact undersigned for clarification of any documentation item in question. History of Present Illness Reason for Consultation: Medical management Requesting Physician: Dr. Thakur Attending Physician: Carlos Thakur MD History of Present Illness PCP : DEENA Henning History obtained from patient and records. Medical history significant for hypertension, DM2 on oral medications, mood/personality disorder as per records, ongoing tobacco abuse. 5 days history of achy abdominal pain which later localized to the right lower quadrant. Patient with anorexia followed by nausea and emesis symptoms. Some dysuria symptoms noted as well. Patient sent to the ER for evaluation. Patient underwent emergent laparoscopic appendectomy for acute appendicitis. Patient currently comfortable. Medical History as above Surgical History : Hydrocele repair Family History : DM Personal/Social history : Current vape use, occasional EtOH intake, retirement inmate Allergies Allergy/AdvReac Type Severity Reaction Status Date / Time No Known Allergies Allergy Verified 12/27/21 22:26 Home Medications Medication Instructions Recorded Confirmed Type aspirin 81 mg chewable tablet 81 mg PO DAILY 12/27/21 05/12/22 History atenolol 25 mg tablet 50 mg PO BID 12/27/21 05/12/22 History enalapril maleate 20 mg tablet 20 mg PO BID 12/27/21 05/12/22 History ergocalciferol (vitamin D2) 1,250 1,250 mcg PO WK 12/27/21 05/12/22 History mcg (50,000 unit) capsule (Vitamin D2) lamotrigine 150 mg tablet 150 mg PO BID 12/27/21 05/12/22 History metformin 500 mg tablet 500 mg PO DAILY 12/27/21 05/12/22 History sertraline 100 mg tablet 200 mg PO QAM 12/27/21 05/12/22 History ibuprofen 600 mg tablet 600 mg PO TID 05/12/22 05/12/22 History mineral oil-hydrophil petrolat 1 applic topical BID 05/12/22 05/12/22 History topical ointment (Aquaphor topical ointment) nortriptyline 50 mg capsule 50 mg PO HS 05/12/22 05/12/22 History olanzapine 15 mg tablet 15 mg PO HS 05/12/22 05/12/22 History Patient History Medical History (Updated 05/11/22 @ 19:49 by Dar Philippe) Appendicitis, acute Depression Diabetes High blood pressure Surgical History H/O hernia repair Social History (Updated 05/11/22 @ 13:49 by Dar Philippe) Smoking Status: Light tobacco smoker Cigarettes Per Day: Vapes.; Second Hand Exposure: No; Do You Dip or Chew Tobacco: No; Tobacco Cessation Education Requested by Patient: No Hx Alcohol Use: No Hx Substance Use: No Preferred Language: Uzbek Communication Ability: Effective Cut Off Saw Tender Metal Required: No Beliefs That Will Affect Care: None Current Living Situation: Other Current Living Situation Comment: [facility] [employer]. current occupational status: other 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 Other Information That Helps Us Care for You: No Feels Safe at Home: Yes Safety Concerns: Feels Safe At This Time Review of Systems Review of Systems: As per HPI, all other systems reviewed and negative Physical Exam Physical Exam: GENERAL: Comfortable, pleasant, obese, no respiratory distress SKIN: Normal color, warm HEENT: [place] palpebral conjunctivae, no ptosis, dry buccal mucosa NECK : Supple, no tenderness CHEST : CTA, no tenderness HEART : RRR, no obvious murmurs ABDOMEN: Some distention, dressing in place, no overt tenderness EXTREMITIES : Minimal LE swelling, no LE tenderness, no other conspicuous deformities noted NEUROLOGIC : Coherent, no facial asymmetry, no other gross focality Results & Data Results & Data ([facility]) Vital Signs (Past 12 Hours) Vital Signs Temp Pulse Pulse Pulse Resp BP BP 05/11/22 20:30 36.9 C 86 18 05/11/22 20:00 84 18 05/11/22 19:10 83 26 H 05/11/22 19:00 36.9 C 94 H 22 05/11/22 18:50 89 24 05/11/22 18:40 93 H 27 H 05/11/22 18:33 36.4 C L 102 H 26 H 05/11/22 16:30 81 28 H 05/11/22 16:30 147/92 H 05/11/22 16:19 87 22 05/11/22 16:19 153/94 H 05/11/22 16:17 133/81 05/11/22 14:31 95 H 33 H 05/11/22 14:30 91 H 24 05/11/22 14:30 170/114 H 05/11/22 14:01 92 H 25 H 05/11/22 14:01 195/132 H 05/11/22 14:00 92 H 22 05/11/22 13:30 86 31 H 05/11/22 13:30 205/136 H 05/11/22 13:00 80 27 H 05/11/22 13:00 181/117 H 05/11/22 12:52 87 27 H 05/11/22 12:52 199/125 H 05/11/22 12:51 87 20 199/125 H 05/11/22 11:57 36.6 C 86 18 161/116 H BP Pulse Ox O2 Del Method O2 Flow Rate 05/11/22 20:30 151/101 H 96 Room Air 05/11/22 20:00 142/91 H 98 Room Air 05/11/22 19:10 139/89 98 Room Air 05/11/22 19:00 149/98 H 100 Room Air 05/11/22 18:50 163/93 H 98 Oxymask 4 05/11/22 18:40 158/92 H 97 Oxymask 6 05/11/22 18:33 162/99 H 96 Oxymask 6 05/11/22 16:30 05/11/22 16:30 05/11/22 16:19 96 05/11/22 16:19 05/11/22 16:17 05/11/22 14:31 94 05/11/22 14:30 93 05/11/22 14:30 05/11/22 14:01 05/11/22 14:01 05/11/22 14:00 05/11/22 13:30 05/11/22 13:30 05/11/22 13:00 05/11/22 13:00 05/11/22 12:52 94 05/11/22 12:52 05/11/22 12:51 94 Room Air 05/11/22 11:57 98 Room Air Laboratory Results Laboratory Results WBC 19.08 K/ul (4.8-10.8) H 05/11/22 12:25 RBC 4.82 M/uL (4.63-6.08) 05/11/22 12:25 Hgb 14.3 g/dl (14.0-18.0) 05/11/22 12:25 Hct 41.7 % (40.1-51.0) 05/11/22 12:25 MCV 86.5 fL (80.0-100.0) 05/11/22 12:25 MCH 29.7 pg (25.0-34.0) 05/11/22 12:25 MCHC 34.3 g/dL (32.0-36.0) 05/11/22 12:25 RDW Std Deviation 41.1 fL (36.4-46.3) 05/11/22 12:25 RDW Coeff of Deandre 13.2 % (11.5-14.5) 05/11/22 12:25 Plt Count 289 K/uL (130-400) 05/11/22 12:25 MPV 9.1 fL (9.4-12.4) L 05/11/22 12:25 Immature Gran % (Auto) 0.5 % 05/11/22 12:25 Neut % (Auto) 90.9 % 05/11/22 12:25 Lymph % (Auto) 4.0 % 05/11/22 12:25 [place] % (Auto) 4.4 % 05/11/22 12:25 Eos % (Auto) 0.0 % 05/11/22 12:25 Baso % (Auto) 0.2 % 05/11/22 12:25 Neut # (Auto) 17.37 K/uL (1.4-6.5) H 05/11/22 12:25 Lymph # (Auto) 0.76 K/uL (1.2-3.4) L 05/11/22 12:25 [place] # (Auto) 0.83 K/uL (0.24-0.82) H 05/11/22 12:25 Eos # (Auto) 0.00 K/uL (0-0.50) 05/11/22 12:25 Baso # (Auto) 0.03 K/uL (0-0.2) 05/11/22 12:25 Immature Gran # (Auto) 0.09 K/uL (0.00-0.02) H 05/11/22 12:25 Sodium 134 mmol/L (136-145) L 05/11/22 12:25 Potassium 3.9 mmol/L (3.5-5.1) 05/11/22 12:25 Chloride 98 mmol/L (98-107) 05/11/22 12:25 Carbon Dioxide 29 mmol/L (21-32) 05/11/22 12:25 Anion Gap 7 (3-11) 05/11/22 12:25 BUN 16 mg/dl (6-23) 05/11/22 12:25 Creatinine 0.96 mg/dl (0.6-1.4) 05/11/22 12:25 Est Cr Clr Drug Dosing 122.9 ml/min 05/11/22 12:25 Est GFR ( Amer) 114.1 ml/min 05/11/22 12:25 Est GFR (Non-Af Amer) 98.5 ml/min 05/11/22 12:25 BUN/Creatinine Ratio 16.7 (10-20) 05/11/22 12:25 Glucose 148 mg/dl (70-99(Fasting)) H 05/11/22 12:25 POC Glucose 105 mg/dl (70-99) H 05/11/22 19:38 Calcium 9.2 mg/dl (8.5-10.1) 05/11/22 12:25 Total Bilirubin 0.5 mg/dl (0.2-1.0) 05/11/22 12:25 AST 23 U/L (13-39) 05/11/22 12:25 ALT 20 U/L (7-52) 05/11/22 12:25 Alkaline Phosphatase 94 U/L (34-104) 05/11/22 12:25 Total Protein 7.1 gm/dl (6.0-8.3) 05/11/22 12:25 Albumin 4.0 gm/dl (3.4-5.0) 05/11/22 12:25 Globulin 3.1 gm/dl (2.5-4.0) 05/11/22 12:25 Albumin/Globulin Ratio 1.3 (0.9-2) 05/11/22 12:25 Lipase 10 U/L (11-82) L 05/11/22 12:25 Urine Color Yellow 05/11/22 15:55 Urine Appearance Clear (Clear) 05/11/22 15:55 Urine pH 7.5 (4.5-7.5) 05/11/22 15:55 Ur Specific [place] > 1.045 (1.000-1.030) H 05/11/22 15:55 Urine Protein Trace (Negative) H 05/11/22 15:55 Urine Glucose (UA) Negative (Negative) 05/11/22 15:55 Urine Ketones Negative (Negative) 05/11/22 15:55 Urine Blood Negative (Negative) 05/11/22 15:55 Urine Nitrite Negative (Negative) 05/11/22 15:55 Urine Bilirubin Negative (Negative) 05/11/22 15:55 Urine Urobilinogen Negative (Negative) 05/11/22 15:55 Ur Leukocyte Esterase Negative (Negative) 05/11/22 15:55 Urine WBC (Auto) 0 /hpf (0-5) 05/11/22 15:55 Urine RBC (Auto) 0-4 /hpf (0-4) 05/11/22 15:55 U Hyaline Cast (Auto) 0 /lpf (0-5) 05/11/22 15:55 U Epithel Cells (Auto) 10-20 /lpf (0-5) H 05/11/22 15:55 Urine Bacteria (Auto) Negative (Negative) 05/11/22 15:55 SARS-CoV-2, RNA, NAAT NEGATIVE (NEGATIVE) 05/11/22 Unknown Impressions Abdomen/Pelvis CT 05/11/22 13:22 CT SCAN OF THE ABDOMEN AND PELVIS WITH IV CONTRAST CLINICAL HISTORY: Generalized abdominal pain. COMPARISON STUDY: No priors. TECHNIQUE: Following the IV administration of 88 cc of Optiray 350, CT scan of the abdomen and pelvis is performed from the lung bases to the proximal femora. Images are reviewed in the axial, sagittal, and coronal planes. IV contrast was administered without complication. A dose lowering technique was utilized adhering to the principles of ALARA. CT DOSE: 754.07 mGy.cm FINDINGS: Lung bases: The heart is normal in size and without pericardial effusion. The lung bases are clear noting dependent atelectasis. A small hiatal hernia is noted. Liver: The contrast-enhanced liver is top normal in size and demonstrates diffusely diminutive attenuation indicating steatosis. Fatty sparing is seen adjacent to the gallbladder fossa. There is no intrahepatic biliary ductal dilatation. The hepatic veins and portal veins are patent. Gallbladder: Unremarkable. Spleen: Normal in size and attenuation. Pancreas: Unremarkable. Adrenal glands: Unremarkable. Kidneys: The contrast enhanced kidneys are normal in size and without hydronephrosis. The kidneys enhance symmetrically. Abdominal vasculature: The abdominal aorta is normal in course and caliber. Bowel: There is moderate colonic fecal retention. No bowel obstruction is seen. The appendix is dilated and fluid-filled, measuring up to 14 mm in diameter as seen on image #[id number]. The appendiceal wall is thickened and hyperemic and there is periappendiceal inflammation. Findings are consistent with acute appendicitis. No fluid collection is seen to indicate abscess. Peritoneum: There is no intraperitoneal free air or abdominal ascites. There are large fat-containing umbilical and supraumbilical hernias. Lymphadenopathy: None. Pelvic viscera: The bladder, prostate, and seminal vesicles are normal as visualized. Skeletal structures: No lytic or blastic lesions are seen. IMPRESSION: 1. Acute appendicitis. 2. There is no evidence of abscess or perforation. 3. Hepatic steatosis. ACT 112: Negative or not required by law. Electronically signed by: Michael Shrestha M.D. 05/11/2022 3:07 PM Chest X-Ray 05/11/22 13:22 SINGLE VIEW CHEST CLINICAL HISTORY: Generalized abdominal pain FINDINGS: An AP, portable, upright chest radiograph is compared to study dated 12/27/2021. The cardiomediastinal silhouette is unremarkable. The lungs and pleural spaces are clear noting mild bibasilar atelectasis. No pneumothorax is seen. The bony thorax is grossly intact. IMPRESSION: No active disease in the chest. ACT 112: Negative or not required by law. Electronically signed by: Michael Shrestha M.D. 05/11/2022 2:05 PM
[2022-05-11] MEDS ORDERED: NORTRIPTYLINE HCL 25 MG CAP PO SCH (21:00)
[2022-05-11] MEDS: INSULIN ASPART PER UNIT SC SCH (21:03)
[2022-05-11] MEDS: ENALAPRIL MALEATE 10 MG TAB PO SCH (22:16)
[2022-05-11] MEDS: oxyCODONE/ACETAMINOPHEN 5mg/325mg TAB PO PRN (22:46)
[2022-05-12] MEDS: cefOXitin 2,000 MG in DEXTROSE 5% 50 ML IV SCH ×2 (02:42→09:54)
[2022-05-12] MEDS: oxyCODONE/ACETAMINOPHEN 5mg/325mg TAB PO PRN ×2 (04:20→09:58)
[2022-05-12] MEDS: SODIUM CHLORIDE 0.9% 1,000 ML IV SCH (06:10)
[2022-05-12] MEDS: ENALAPRIL MALEATE 10 MG TAB PO SCH (08:05)
[2022-05-12] MEDS: INSULIN ASPART PER UNIT SC SCH ×2 (08:41→12:48)
[2022-05-12] MEDS ORDERED: lamoTRIgine 100 MG TAB PO SCH (09:00)
[2022-05-12] MEDS ORDERED: ATENOLOL 50 MG TABLET PO SCH (09:00)
[2022-05-12] MEDS ORDERED: SERTRALINE HCL 100 MG TABLET PO SCH (09:00)
--- NOTE | 2022-05-12 11:40 | Hospitalist Progress Note ---
Date of Service May 12, 2022 Assessment & Plan (1) Acute appendicitis: Plan Acute appendicitis s/p Lap Appendectomy 05/11/22 Reports some pain at operative sites, lap ports healthy appearing w/ minimal drainage Toelrating diet, moving gas Pain Mx Mx per Sx. Other medical conditions: at baseline, c/w home meds. DVT Px: Per primary team. Dispo: medically stable, per Primary team. Likely dc today. Admission and Anticipated Discharge Date Admission Date: May 11, 2022 Subjective Patient seen and examined at bedside for follow-up of medical mx of acute appendicitis s/p lap appendectomy. Patient was lying in bed, on room air, afebrile overnight, denies any new acute event overnight, reports tolerating diet, reports belly pain under control, is moving gas, denies any fever/chills/headache/dizziness/chest pain/palpitation/other review of symptoms. Physical Exam Physical Exam: GENERAL: Alert and oriented x3. NAD, on RA. HEENT: No pallor, no icterus. Pupils equal, round and reactive to light. Oral mucosa moist. NECK: No JVD, no neck masses. HEART: S1 and S2 heard. Regular rate and rhythm. No murmur, no gallop. RESPIRATORY SYSTEM: Normal AP diameter. No accessory muscle use. No wheezing, no crackles. ABDOMEN: Soft, bowel sounds present, nontender, no distention. Lap ports w/ minimal drainage, healthy appearing. CENTRAL NERVOUS SYSTEM: No facial droop. Speech is clear. Obeys simple commands. Moves extremities. EXTREMITIES: No edema, no erythema seen. Results & Data Results & Data ([facility]) Vital Signs (Past 12 Hours) Vital Signs Temp Pulse Resp BP Pulse Ox O2 Del Method 05/12/22 11:30 36.9 C 78 16 132/73 96 05/12/22 11:08 36.9 C 78 16 132/73 96 Room Air 05/12/22 07:32 36.7 C 80 16 132/83 97 Room Air 05/12/22 03:00 36.6 C 88 18 111/64 94 Room Air
--- NOTE | 2022-05-12 11:52 | Discharge Summary (DS) ---
DATE OF ADMISSION: 05/11/2022 DATE OF DISCHARGE: 05/12/2022 ATTENDING SURGEON: Carlos Thakur MD. PROCEDURE: Laparoscopic appendectomy on 05/11/2022. HISTORY OF PRESENT ILLNESS: This is a 41-year-old male who came in with acute abdominal pain consistent with acute appendicitis. CT scan confirmed the diagnosis. He was taken to the OR for laparoscopic appendectomy after he received IV fluids and IV antibiotics. HOSPITAL COURSE: The patient was admitted, taken to the OR and underwent uncomplicated laparoscopic appendectomy. He was given antibiotics for 24 hours. He was up ambulating around, had good pain control, was eating. His dressings were taken down, and they looked clean except for a small amount of drainage. He was therefore discharged back to his facility on postoperative day #1. DISCHARGE MEDICATIONS: Aquaphor ointment, aspirin 81 mg daily, atenolol 50 mg p.o. twice a day, enalapril 20 mg p.o. twice a day, vitamin D2 capsule once a week, ibuprofen 600 mg p.o. 3 times a day, lamotrigine 150 mg p.o. twice a day, metformin 500 mg p.o. daily, nortriptyline 50 mg p.o. at night, olanzapine 15 mg p.o. at night, sertraline 200 mg p.o. daily, and Percocet 1 tablet p.o. q.4 hours p.r.n. pain. ACTIVITY: No strenuous activity, no lifting more than 20 pounds. Shower ad dalia. DIET: Regular as tolerated. FOLLOW UP: With his PCP in 2 weeks. Job ID: [id number] [facility]
[2022-05-12] MEDS ORDERED: OLANZapine 5 MG TABLET PO SCH (21:00)
[2022-05-13 06:57] LABS: Estimated Average Glucose 163 mg/dl; Hemoglobin A1C 7.3 % (4.5-5.6)
[2022-05-13] MEDS ORDERED: metFORMIN HCL 500 MG TAB PO SCH (07:30)
== END 2022-05-12 15:59 ==
LOC: ED 11:52 → 3E 17:13 → OR 17:13